=== PATIENT | male | born 1955 ===

== ENCOUNTER 2024-08-31 07:49 | Outpatient (RCR) | payer MEDICARE, SELFPAY | END 2024-09-03 23:59 | disposition home or self-care (01) | LOC: SWHD 07:49 | PROVIDERS: PCP Family Medicine; Referring Provider Family Medicine; Visit Provider Student in an Organized Health Care Education/Training Program | DX: L59.8 Other specified disorders of the skin and subcutaneous tissue related to radiation (principal); C91.10 Chronic lymphocytic leukemia of B-cell type not having achieved remission; N18.30 Chronic kidney disease, stage 3 unspecified; E04.9 Nontoxic goiter, unspecified | CPT/HCPCS: 97597 ×2; 11042; 99213; A9270; G0277; G0463 ==

== ENCOUNTER 2024-10-04 07:33 | Outpatient (RCR) | payer MEDICARE, SELFPAY | END 2024-10-04 23:59 | disposition home or self-care (01) | LOC: SWHD 07:33 | PROVIDERS: PCP Family Medicine; Referring Provider Family Medicine; Visit Provider Student in an Organized Health Care Education/Training Program | DX: L59.8 Other specified disorders of the skin and subcutaneous tissue related to radiation (principal); N18.30 Chronic kidney disease, stage 3 unspecified; E04.9 Nontoxic goiter, unspecified; C91.10 Chronic lymphocytic leukemia of B-cell type not having achieved remission | CPT/HCPCS: 97597; 11042 ×2; A9270; G0277 ==

== ENCOUNTER → 2024-10-12 | Outpatient (CLI) | payer MEDICARE, SELFPAY | END | disposition home or self-care (01) | LOC: SWHD 09:06 | PROVIDERS: PCP Family Medicine; Referring Provider Family Medicine; Visit Provider Surgery | DX: T81.89XA Other complications of procedures, not elsewhere classified, initial encounter (principal); L59.8 Other specified disorders of the skin and subcutaneous tissue related to radiation; Y84.2 Radiological procedure and radiotherapy as the cause of abnormal reaction of the patient, or of later complication, without mention of misadventure at the time of the procedure; N18.30 Chronic kidney disease, stage 3 unspecified; E04.9 Nontoxic goiter, unspecified; C91.10 Chronic lymphocytic leukemia of B-cell type not having achieved remission | CPT/HCPCS: 99213; A9270; G0463 ==

== ENCOUNTER → 2024-10-21 | Outpatient (CLI) | payer MEDICARE, SELFPAY | END | disposition home or self-care (01) | LOC: SWHD 08:15 | PROVIDERS: PCP Family Medicine; Referring Provider Family Medicine; Visit Provider Student in an Organized Health Care Education/Training Program | DX: T81.89XA Other complications of procedures, not elsewhere classified, initial encounter (principal); L59.8 Other specified disorders of the skin and subcutaneous tissue related to radiation; Y84.2 Radiological procedure and radiotherapy as the cause of abnormal reaction of the patient, or of later complication, without mention of misadventure at the time of the procedure; N18.30 Chronic kidney disease, stage 3 unspecified; E04.9 Nontoxic goiter, unspecified; C91.10 Chronic lymphocytic leukemia of B-cell type not having achieved remission | CPT/HCPCS: 11042; A9270 ==

== ENCOUNTER 2024-11-02 07:53 | Outpatient (RCR) | payer MEDICARE, SELFPAY | END 2024-11-04 23:59 | disposition home or self-care (01) | LOC: SWHD 07:53 | PROVIDERS: PCP Family Medicine; Referring Provider Family Medicine; Visit Provider Student in an Organized Health Care Education/Training Program | DX: T81.89XA Other complications of procedures, not elsewhere classified, initial encounter (principal); L59.8 Other specified disorders of the skin and subcutaneous tissue related to radiation; Y84.2 Radiological procedure and radiotherapy as the cause of abnormal reaction of the patient, or of later complication, without mention of misadventure at the time of the procedure; N18.30 Chronic kidney disease, stage 3 unspecified; E04.9 Nontoxic goiter, unspecified; C91.10 Chronic lymphocytic leukemia of B-cell type not having achieved remission | CPT/HCPCS: 11042 ×2; 97597 ×2; 16020; 99212; J3490; A9270; G0277; G0463 ==

== ENCOUNTER → 2024-11-07 | Outpatient (CLI) | payer MEDICARE, SELFPAY | END | disposition home or self-care (01) | PROVIDERS: PCP Family Medicine; Referring Provider Family Medicine; Visit Provider Student in an Organized Health Care Education/Training Program | DX: T81.89XA Other complications of procedures, not elsewhere classified, initial encounter (principal); L59.8 Other specified disorders of the skin and subcutaneous tissue related to radiation; Y84.2 Radiological procedure and radiotherapy as the cause of abnormal reaction of the patient, or of later complication, without mention of misadventure at the time of the procedure; N18.30 Chronic kidney disease, stage 3 unspecified; E04.9 Nontoxic goiter, unspecified; C91.10 Chronic lymphocytic leukemia of B-cell type not having achieved remission | CPT/HCPCS: 97597; A9270 ==

== ENCOUNTER → 2024-11-22 | Outpatient (CLI) | payer MEDICARE, SELFPAY | END | disposition home or self-care (01) | PROVIDERS: PCP Family Medicine; Referring Provider Family Medicine; Visit Provider Student in an Organized Health Care Education/Training Program | DX: T81.89XA Other complications of procedures, not elsewhere classified, initial encounter (principal); L98.499 Non-pressure chronic ulcer of skin of other sites with unspecified severity; L59.8 Other specified disorders of the skin and subcutaneous tissue related to radiation; Y84.2 Radiological procedure and radiotherapy as the cause of abnormal reaction of the patient, or of later complication, without mention of misadventure at the time of the procedure; N18.30 Chronic kidney disease, stage 3 unspecified; E04.9 Nontoxic goiter, unspecified; C91.10 Chronic lymphocytic leukemia of B-cell type not having achieved remission | CPT/HCPCS: 99213; A9270; G0463 ==

== ENCOUNTER → 2024-11-22 | Outpatient (CLI) | payer MEDICARE, SELFPAY ==
[2024-11-22 11:24] LABS: Basophils # (Auto) 0.1 Thou/mm3 (0.0-0.2); Basophils % (Auto) 1 % (0-2.5); Eosinophils # (Auto) 0.1 Thou/mm3 (0.0-0.5); Eosinophils % (Auto) 1 % (0-10); Hematocrit 42.2 % (41.0-53.0); Hemoglobin 13.6 g/dL (13.5-16.0); Immature Granulocytes % (Auto) 0 % (0-0); Immature Granulocytes Auto 0.02 Thou/mm3 (0.00-0.00); Lymphocytes # (Auto) 3.5 Thou/mm3 (1.0-4.8); Lymphocytes % (Auto) 35 % (10-50); Mean Corpuscular HGB Conc 32.2 g/dl (31.0-37.0); Mean Corpuscular Hemoglobin 26.3 pg (25.0-35.0); Mean Corpuscular Volume 82 fL (80-100); Monocytes # (Auto) 0.7 Thou/mm3 (0.0-0.8); Monocytes % (Auto) 6 % (0-12); Neutrophils # (Auto) 5.9 Thou/mm3 (1.8-7.7); Neutrophils % (Auto) 57 % (37-80); Nucleated Red Blood Cell % 0 /100 WBC (0); Platelet Count 195 Thou/mm3 (140-440); RDW Standard Deviation 41.8 fL (35.1-43.9); Red Blood Count 5.18 Miln/mm3 (4.50-5.90); White Blood Count 10.2 Thou/mm3 (3.8-10.6)
[2024-11-22 11:30] LABS: Glucose Estimated Average 103 mg/dL (80-131); Hemoglobin A1C 5.2 % Hgb (4.8-6.0)
[2024-11-22 11:44] LABS: Alanine Aminotransferase 9 U/L (10-49); Albumin, Serum 4.1 gm/dL (3.4-4.8); Albumin/Globulin Ratio 1.9 (1.2-2.2); Alkaline Phosphatase 107 U/L (46-116); Anion Gap 7 (7-16); Aspartate Amino Transferase 13 U/L (0-34); BUN/Creatinine Ratio 19 Ratio (12-20); Bilirubin,Total 0.6 mg/dL (0.3-1.2); Blood Urea Nitrogen 45 mg/dL (9-23); Calcium 9.6 mg/dL (8.3-10.6); Calcium (Corrected) 9.6 mg/dL (8.5-10.1); Carbon Dioxide 26.9 mMol/L (20.0-31.0); Chloride 104 mMol/L (98-107); Creatinine (Component) 2.4 mg/dL (0.6-1.3); Globulin 2.2 gm/dL (2.3-3.5); Glucose 105 mg/dL (74-106); Osmolality,Calculated 287 (275-295); Potassium 5.2 mMol/L (3.4-5.1); Sodium 138 mMol/L (136-145); Total Protein 6.3 gm/dL (5.7-8.2); eGFR 28 See Note
== END | disposition home or self-care (01) ==
PROVIDERS: Referring Provider Student in an Organized Health Care Education/Training Program; Visit Provider Student in an Organized Health Care Education/Training Program
DX: L98.493 Non-pressure chronic ulcer of skin of other sites with necrosis of muscle (principal); C44.222 Squamous cell carcinoma of skin of right ear and external auricular canal
CPT/HCPCS: 36415; 80053; 83036; 85025

== ENCOUNTER → 2024-12-05 | Outpatient (CLI) | payer MEDICARE, SELFPAY | END | disposition home or self-care (01) | LOC: SWHD 08:35 | PROVIDERS: PCP Family Medicine; Referring Provider Family Medicine; Visit Provider Student in an Organized Health Care Education/Training Program | DX: T81.89XA Other complications of procedures, not elsewhere classified, initial encounter (principal); L98.499 Non-pressure chronic ulcer of skin of other sites with unspecified severity; L59.8 Other specified disorders of the skin and subcutaneous tissue related to radiation; Y84.2 Radiological procedure and radiotherapy as the cause of abnormal reaction of the patient, or of later complication, without mention of misadventure at the time of the procedure; N18.30 Chronic kidney disease, stage 3 unspecified; E04.9 Nontoxic goiter, unspecified; C91.10 Chronic lymphocytic leukemia of B-cell type not having achieved remission | CPT/HCPCS: 11042; A9270 ==

== ENCOUNTER → 2024-12-19 | Outpatient (CLI) | payer MEDICARE, SELFPAY | END | disposition home or self-care (01) | LOC: SWHD 07:52 | PROVIDERS: PCP Family Medicine; Referring Provider Family Medicine; Visit Provider Student in an Organized Health Care Education/Training Program | DX: N18.30 Chronic kidney disease, stage 3 unspecified (principal); E04.9 Nontoxic goiter, unspecified; C91.10 Chronic lymphocytic leukemia of B-cell type not having achieved remission | CPT/HCPCS: 99213; A9270; G0463 ==